=== PATIENT | male | born 1955 | race Hispanic/Latino ===

== ENCOUNTER 2017-08-29 08:11 | Day surgery (SDC) | payer BC ==
[2017-08-29] MEDS ORDERED: Lactated Ringer's 1,000 ML IV ONE (08:42)
[2017-08-29] MEDS ORDERED: Etomidate 20 mg/10ml Inj IV ONE (10:07)
[2017-08-29] MEDS ORDERED: Propofol 10 mg/ml Inj (20 ML) ONE (10:07)
[2017-08-29] MEDS ORDERED: Lidocaine 2% MPF (5 ml) Inj ONE (10:08)
[2017-08-29 10:28] VITALS: TEMP 97
[2017-08-29 10:42] VITALS: BP 95/58; PULSE 67; RESP 15; O2SAT 97
== END 2017-08-29 11:36 | disposition home or self-care (01) ==
LOC: H.ENDO 08:11
PROVIDERS: ATTEND Internal Medicine Gastroenterology
DX: Z12.11 Encounter for screening for malignant neoplasm of colon (principal); I48.91 Unspecified atrial fibrillation; J45.909 Unspecified asthma, uncomplicated; E11.9 Type 2 diabetes mellitus without complications; F32.9 Major depressive disorder, single episode, unspecified; Z85.47 Personal history of malignant neoplasm of testis; K64.0 First degree hemorrhoids
CPT/HCPCS: 45378; J2704; J7120